=== PATIENT | female | born 1955 | race Caucasian/White ===

== ENCOUNTER 2020-02-06 11:05 | Emergency (ER) | payer MEDICARE ==
--- NOTE | 2020-02-06 11:32 | ED.PDOC ---
History of Present Illness - General Chief Complaint: General Stated Complaint: skin turning yellow Time Seen by Provider: 02/06/20 11:10 - History of Present Illness Initial Comments: 64 F no pmh presents with family member to ED c/o acute onset of painless jaundice that began yesterday. Pt endorses associated progressive generalized fatigue for approximately 1 week now. + h/o similar sx's when she was young as a secondary complication of prior Malaria infection. Pt has no h/o abdominal surgeries and takes no medications daily. She denies alleviating/aggravating factors. She denies associated CP, SOB, abd pain, back pain, cough, n/v/d, f/c, and/or acute changes in bowels/urination. She is otherwise healthy with no other symptoms or complaints. Pt informs she recently took OTC supplement "Leptitox" but has been off of it for approximately 2 months now. Allergies/Adverse Reactions: Allergies NO KNOWN ALLERGY Allergy (Verified 02/06/20 11:24) Home Medications: Ambulatory Orders NK 02/06/20 Review of Systems - Review of Systems Constitutional: States: other - generalized fatigue. Denies: chills, fever EENTM: States: other - scleral icterus Respiratory: Denies: cough, short of breath Cardiology: Denies: chest pain, edema Gastrointestinal/Abdominal: Denies: abdominal pain, constipation, diarrhea, nausea, vomiting Genitourinary: Denies: dysuria Musculoskeletal: Denies: joint pain, muscle pain Skin: States: change in color - jaundice. Denies: rash Neurological: States: other - no dizziness. Denies: headache Hematologic/Lymphatic: Denies: easy bruising Past Medical History (General) - Patient Medical History Surgical History: no surgical history - Vaccination History Hx Influenza Vaccination: No - Social History Hx Alcohol Use: No - Activities of Daily Living Hospice Agency (if applicable):: None - Female History Patient is a Female of Child Bearing Age (10 -59 yrs old): No Family Medical History - Family History Mother Family History: No Known Physical Exam - Physical Exam General Appearance: Alert, Comfortable, No apparent distress Eye Exam: bilateral scleral icterus, bilateral other - PERRLA, pupils symmetric bilaterally Neck: full range of motion, supple, normal inspection Respiratory: lungs clear, normal breath sounds, no respiratory distress, no accessory muscle use Cardiovascular/Chest: normal peripheral pulses, regular rate, rhythm, no edema, no JVD Gastrointestinal/Abdominal: normal bowel sounds, non tender, soft, other - no rebound, no guarding, no peritoneal signs, negative Loving and McBurney Back Exam: no CVA tenderness Extremity: normal inspection, no pedal edema Neurologic: alert, normal mood/affect, oriented x 3 Skin Exam: jaundice Progress - Progress Progress: Pt presents with painless jaundice concerning for pancreaticobiliary pathology. I will perform labs, imaging, provide appropriate pharmacotherapy, and continue to monitor/reassess. Dispo will depend on labs, imaging results and overall course in ED; however, discharge admission is expected. Shorty Brink DO [employer]: 738 PO potassium supplementation given in ED. Rechecked pt with family member at bedside. NAD, VSS, and remains without pain. I have discussed imaging, and radiology results, my clinical impression, and diagnosis. I have also discussed need/plan for transfer for admission and further evaluation by GI with likely cholecystectomy later to follow. Pt and family member voice understanding, agree with plan for transfer, request transfer by private vehicle, all questions answered. Dr. Green auto accepts pt. - Results/Orders Results/Orders: Vital Signs - 24 hr 02/06/20 02/06/20 11:14 11:20 Temperature 98.0 F Pulse Rate [ 98 H 98 H brachial] Respiratory 16 16 Rate Blood Pressure 170/113 [Left Arm] O2 Sat by Pulse 98 Oximetry 02/06/20 11:14 IV Care:Saline Lock per Protoc QSHIFT IV:Start .ONCE 02/06/20 11:30 EKG STAT 02/06/20 12:02 Urine Culture Stat Laboratory Results - last 24 hr 02/06/20 02/06/20 02/06/20 11:25 11:25 11:25 WBC 7.8 RBC 4.33 Hgb 12.7 Hct 37.8 MCV 87.3 MCH 29.3 MCHC 33.6 RDW 15.7 H Plt Count 276 MPV 10.8 Neut % 75.1 Absolute Neuts (auto) Cancelled Absolute Lymphs (auto) 1.21 Absolute Monos (auto) 0.62 Absolute Eos (auto) Cancelled Absolute Basos (auto) Cancelled Neutrophils % Cancelled Lymphocytes % 15.6 Monocytes % 8.0 Eosinophils % Cancelled Basophils % Cancelled Absolute Neutrophils 5.85 Differential Comment Cancelled RBC Morphology Cancelled Sodium 134 L Potassium 2.7 L Chloride 98 L Carbon Dioxide 24 Anion Gap 14.7 BUN 10 Creatinine 0.79 BUN/Creatinine Ratio 12.7 Random Glucose 217 H Serum Osmolality 273.9 L Calcium 8.7 Total Bilirubin 13.1 H* Direct Bilirubin 8.2 H AST 214 H ALT 390 H Alkaline Phosphatase 316 H Serum Total Protein 7.1 Albumin 3.5 Globulin 3.6 H Albumin/Globulin Ratio 1.0 L Lipase 19 L Urine Color Urine Appearance Urine pH Ur Specific Vansant Urine Protein Urine Glucose (UA) Urine Ketones Urine Blood Urine Nitrite Urine Bilirubin Urine Urobilinogen Ur Leukocyte Esterase Urine RBC Urine WBC Ur Epithelial Cells Urine Bacteria Acetaminophen 02/06/20 02/06/20 11:25 11:35 WBC RBC Hgb Hct MCV MCH MCHC RDW Plt Count MPV Neut % Absolute Neuts (auto) Absolute Lymphs (auto) Absolute Monos (auto) Absolute Eos (auto) Absolute Basos (auto) Neutrophils % Lymphocytes % Monocytes % Eosinophils % Basophils % Absolute Neutrophils Differential Comment RBC Morphology Sodium Potassium Chloride Carbon Dioxide Anion Gap BUN Creatinine BUN/Creatinine Ratio Random Glucose Serum Osmolality Calcium Total Bilirubin Direct Bilirubin AST ALT Alkaline Phosphatase Serum Total Protein Albumin Globulin Albumin/Globulin Ratio Lipase Urine Color Yellow Urine Appearance Clear Urine pH 7.0 Ur Specific [place] 1.010 Urine Protein Negative Urine Glucose (UA) Negative Urine Ketones Negative Urine Blood Moderate H Urine Nitrite Negative Urine Bilirubin Small H Urine Urobilinogen 0.2 Ur Leukocyte Esterase Trace H Urine RBC 5-10 H Urine WBC 3-5 H Ur Epithelial Cells 10-20 Urine Bacteria Rare Acetaminophen < 10.0 L EXAM DESCRIPTION: Gall Bladder: ULTRASOUND. CLINICAL HISTORY: Painless Jaundice COMPARISON: None. TECHNIQUE: Transabdominal scanning: Calero-scale and Doppler modes. FINDINGS: Gallbladder: Dilated, 12 x 5 cm, with gravity dependent sludge. No fluid around the gallbladder. No wall thickening. 1.8 mm. tender with transducer pressure. Common bile duct: caliber 14.6 mm markedly dilated. Liver: normal echogenicity; contour liver capsule smooth where seen. No fluid around the liver. Intrahepatic biliary ducts normal caliber. Doppler hepatopedal flow portal vein.. Millimeters at the bismark hepatis. Long axis right lobe 15.7 cm. Pancreas: normal size Normal echogenicity. Duct not seen. Aorta: 1.9 cm proximal normal caliber. Right kidney: long axis is 9.9 cm. Normal cortical echogenicity with midrenal cortical thickness 10 mm.. IMPRESSION: 1. Dilated gallbladder but no wall thickening or fluid. Moderate amount of gravity dependent sludge. Tender with transducer pressure, consider acute versus chronic acalculous cholecystitis. Dilated common bile duct. 2. Fatty liver normal size with physiologic vascularity and normal caliber of the ducts. Otherwise unremarkable. Pancreas is negative. 3. Right kidney with minimal cortical thinning but normal echogenicity. Normal caliber of the abdominal aorta. Electronically signed by: Andrew Garcia MD 02/06/2020 12:30 PM CDT Departure - Departure Clinical Impression: Hypokalemia, Acute on chronic cholecystitis, Transaminitis, Hyperbilirubinemia Time of Disposition: 13:21 Disposition: Transfer to Hospital Condition: Fair Departure Forms: ED Discharge - Pt. Copy, Patient Portal Self Enrollment Diet: other - NPO Home Medications: Ambulatory Orders NK 02/06/20 Transfer to Outside Facility - Transfer Information Decision to Transfer Date: 02/06/20 Decision to Transfer Time: 13:26 Reason for Transfer: specialized care not available Accepting Provider:: Dr. Green Accepting Facility: [facility]
[2020-02-06] MEDS ORDERED: POTASSIUM CHLORIDE ELIXIR 20 MEQ/15 ML UD PO ONE (12:02)
--- NOTE | 2020-02-06 12:31 | US ---
EXAM DESCRIPTION: Gall Bladder: ULTRASOUND. CLINICAL HISTORY: Painless Jaundice COMPARISON: None. TECHNIQUE: Transabdominal scanning: Calero-scale and Doppler modes. FINDINGS: Gallbladder: Dilated, 12 x 5 cm, with gravity dependent sludge. No fluid around the gallbladder. No wall thickening. 1.8 mm. tender with transducer pressure. Common bile duct: caliber 14.6 mm markedly dilated. Liver: normal echogenicity; contour liver capsule smooth where seen. No fluid around the liver. Intrahepatic biliary ducts normal caliber. Doppler hepatopedal flow portal vein.. Millimeters at the bismark hepatis. Long axis right lobe 15.7 cm. Pancreas: normal size Normal echogenicity. Duct not seen. Aorta: 1.9 cm proximal normal caliber. Right kidney: long axis is 9.9 cm. Normal cortical echogenicity with midrenal cortical thickness 10 mm.. IMPRESSION: 1. Dilated gallbladder but no wall thickening or fluid. Moderate amount of gravity dependent sludge. Tender with transducer pressure, consider acute versus chronic acalculous cholecystitis. Dilated common bile duct. 2. Fatty liver normal size with physiologic vascularity and normal caliber of the ducts. Otherwise unremarkable. Pancreas is negative. 3. Right kidney with minimal cortical thinning but normal echogenicity. Normal caliber of the abdominal aorta. Electronically signed by: Andrew Garcia MD 02/06/2020 12:30 PM CDT
[2020-02-06 14:07] VITALS: O2SAT 98
[2020-02-06 14:08] VITALS: BP 137/103
[2020-02-06 14:22] VITALS: TEMP 98.2
== END 2020-02-06 14:21 | disposition short-term general hospital (02) ==
LOC: ER 11:05
DX: K81.0 Acute cholecystitis (principal); E87.6 Hypokalemia; E80.6 Other disorders of bilirubin metabolism; R74.0 Nonspecific elevation of levels of transaminase and lactic acid dehydrogenase [LDH]

== ENCOUNTER → 2020-02-28 | Outpatient (CLI) | payer MEDICARE, OTHER ==
--- NOTE | 2020-02-28 19:15 | US ---
EXAM DESCRIPTION: Venous,Lower Extremity RT (accession [id number]), Venous,Lower Extremity LT (accession [id number]): Ultrasound. CLINICAL HISTORY: CHRONIC LYMPHOCYTIC LEUKEMIA NOT HAVING ACHIEVED REMISSION COMPARISON: None Available. TECHNIQUE: Two -dimensional and doppler sonographic evaluation of the deep venous system of the bilateral lower extremities. FINDINGS: Doppler evaluation shows normal color flow and normal phasicity and augmentation of the bilateral common femoral veins, junctions with the bilateral proximal saphenous veins, femoral veins, popliteal veins, greater saphenous veins, peroneal and posterior tibial veins. These veins showed normal occlusion with transducer pressure. Two-dimensional survey showed no echogenic clot within these veins. IMPRESSION: Duplex ultrasound evaluation of the bilateral lower extremity deep venous systems showing no evidence of thrombosis. Electronically signed by: Andrew Garcia MD 02/28/2020 7:13 PM CDT
--- NOTE | 2020-02-28 19:15 | US ---
EXAM DESCRIPTION: Venous,Lower Extremity RT (accession [id number]), Venous,Lower Extremity LT (accession [id number]): Ultrasound. CLINICAL HISTORY: CHRONIC LYMPHOCYTIC LEUKEMIA NOT HAVING ACHIEVED REMISSION COMPARISON: None Available. TECHNIQUE: Two -dimensional and doppler sonographic evaluation of the deep venous system of the bilateral lower extremities. FINDINGS: Doppler evaluation shows normal color flow and normal phasicity and augmentation of the bilateral common femoral veins, junctions with the bilateral proximal saphenous veins, femoral veins, popliteal veins, greater saphenous veins, peroneal and posterior tibial veins. These veins showed normal occlusion with transducer pressure. Two-dimensional survey showed no echogenic clot within these veins. IMPRESSION: Duplex ultrasound evaluation of the bilateral lower extremity deep venous systems showing no evidence of thrombosis. Electronically signed by: Andrew Garcia MD 02/28/2020 7:13 PM CDT
== END ==
LOC: US 13:45
PROVIDERS: ATTEND Internal Medicine
DX: M79.604 Pain in right leg (principal); M79.605 Pain in left leg; M79.89 Other specified soft tissue disorders

== ENCOUNTER → 2020-04-11 | Outpatient (CLI) | payer MEDICARE, OTHER | LOC: GMAL 14:45 | PROVIDERS: ATTEND Family Medicine | DX: E83.40 Disorders of magnesium metabolism, unspecified (principal); I10 Essential (primary) hypertension ==

== ENCOUNTER → 2020-05-08 | Outpatient (CLI) | payer MEDICARE, OTHER | LOC: HHH 13:20 | PROVIDERS: ATTEND Family Medicine | DX: R30.0 Dysuria (principal) ==

== ENCOUNTER → 2020-05-10 | Outpatient (CLI) | payer MEDICARE, OTHER | LOC: HHH 14:31 | PROVIDERS: ATTEND Internal Medicine | DX: K52.29 Other allergic and dietetic gastroenteritis and colitis (principal) ==

== ENCOUNTER 2020-08-21 12:42 | Emergency (ER) | payer MEDICARE, OTHER ==
[2020-08-21] MEDS ORDERED: SODIUM CHLORIDE 0.9% (FLUSH) 10 ML SYG IV PRN (12:52)
[2020-08-21] MEDS ORDERED: SODIUM CHLORIDE 0.9% 1000ML 1,000 ML IVS PRN (12:52)
--- NOTE | 2020-08-21 14:24 | ED.PDOC ---
History of Present Illness - General Source: patient, RN notes reviewed, Vital Signs reviewed, EMS notes reviewed Exam Limitations: no limitations - History of Present Illness Initial Comments: Patient is a 65-year-old white female who presents with complaints of generalized malaise, fatigue and weakness over the last 3 weeks. Patient diagnosed with pancreatic cancer. She is undergone chemotherapy x4. Her last episode of chemotherapy was approximately 4 weeks ago. Patient has decided not to continue the chemotherapy because it is killing her. Patient's weakness is constant, worsening. Her weakness is worse with exertion. Is not improved with rest. Patient is also noted that her skin is yellow now. Severity: severe Improving Factors: rest Worsening Factors: movement Associated Symptoms: malaise, weakness <Nasir Zabala - Last Filed: 08/22/20 07:12> <Osvaldo Abrams - Last Filed: 08/22/20 13:55> - General Chief Complaint: General Stated Complaint: weakness, low bp Time Seen by Provider: 08/21/20 12:51 - History of Present Illness Allergies/Adverse Reactions: Allergies Penicillins Adverse Reaction (Verified 08/21/20 13:00) Home Medications: Ambulatory Orders NK 02/06/20 Review of Systems - Review of Systems Constitutional: States: see HPI, malaise, weakness. Denies: chills, fever EENTM: States: no symptoms reported. Denies: eye pain, blurred vision, double vision Respiratory: States: no symptoms reported. Denies: cough, short of breath Cardiology: States: no symptoms reported. Denies: chest pain, palpitations, syncope Gastrointestinal/Abdominal: States: no symptoms reported. Denies: abdominal pain, diarrhea, nausea, vomiting Genitourinary: States: no symptoms reported. Denies: dysuria, frequency Musculoskeletal: States: no symptoms reported. Denies: back pain, joint pain, neck pain Skin: States: see HPI, change in color - Hello. Denies: rash Neurological: States: see HPI, weakness. Denies: headache, tingling, tremors Endocrine: States: no symptoms reported. Denies: increased hunger, increased thirst, increased urine, unexplained weight gain, unexplained weight loss Hematologic/Lymphatic: States: no symptoms reported. Denies: blood clots, easy bleeding All other Systems: No Change from Baseline <Nasir Zabala - Last Filed: 08/22/20 07:12> Past Medical History (General) - Patient Medical History Hx Stroke: Yes Hx of COPD: Yes Hx Cardiac Disorders: Yes Hx Congestive Heart Failure: No Hx Hypertension: Yes Hx Diabetes: No Hx Renal Disease: Yes - Vaccination History Hx Tetanus, Diphtheria Vaccination: No Hx Influenza Vaccination: No Hx Pneumococcal Vaccination: No Immunizations Up to Date: No - Social History Hx Tobacco Use: No Hx Alcohol Use: No Hx Substance Use: No Hx Substance Use Treatment: No Hx Depression: No - Female History Patient is a Female of Child Bearing Age (10 -59 yrs old): No <Nasir Zabala - Last Filed: 08/22/20 07:12> Family Medical History - Family History Mother Family History: No Known <Nasir Zabala - Last Filed: 08/22/20 07:12> Physical Exam - Physical Exam General Appearance: Alert, Anxious, Frail, Lethargic, Obvious distress, Ill Appearing, Well Developed, Well Nourished Eye Exam: bilateral scleral icterus Ears, Nose, Throat: hearing grossly normal, normal pharynx - Yellow conjunctiva and sclera except dry mucous membranes Neck: non-tender, full range of motion, supple Respiratory: chest non-tender, lungs clear, normal breath sounds, no respiratory distress, no accessory muscle use Cardiovascular/Chest: normal peripheral pulses, no edema, no gallop, no JVD, tachycardia Peripheral Pulses: radial,right: 2+, radial,left: 2+ Gastrointestinal/Abdominal: normal bowel sounds, non tender, soft Back Exam: normal inspection, no CVA tenderness, no vertebral tenderness Extremity: normal range of motion, non-tender, normal capillary refill, pedal edema - 2+ lower extremity edema bilaterally and equal. Neurologic: celery stripper II-XII nml as tested, no motor/sensory deficits, alert, normal mood/affect, oriented x 3 Skin Exam: jaundice Lymphatic: no adenopathy <Nasir Zabala - Last Filed: 08/22/20 07:12> Progress - Progress Progress: Differential diagnosis: Dehydration, UTI, bowel obstruction, sepsis, electrolyte imbalance among others. 08/21/20 16:48 Patient's heart rate has come down markedly since she has had a liter of IV fluid. She is still mildly tachycardic and therefore I will give her a 500 cc bolus. Labs abnormalities show mild hypokalemia. I have given her 40 p.o. of potassium and will discharge her with a prescription for potassium. I will reassess her prior to discharge. 08/21/20 19:00 Upon reassessment prior to discharge patient's blood pressure dropped into the 80s. Patient appeared more confused. Lactic acid and ammonia were obtained and they were markedly elevated. Patient responded to another liter bolus of fluids. In discussion with the patient and family I recommended admission for further evaluation and treatment. Blood cultures were drawn and IV antibiotics were started. 08/21/20 21:55 Patient Remains stable at this time. Mild tachycardia with systolic blood pressures in the 90s. Antibiotics have infused. We are still looking for a hospital that has capacity to accept the patient for transfer. In the interim, I have ordered chest x-ray and CT of the abdomen and pelvis. I have discussed with the patient and her daughter and they voiced understanding and agreement with the plan of care. 08/22/20 02:37 Have contacted greater than 20 hospitals to arrange for transfer. All hospitals do not have capacity or capability. We will continue to seek transfer of medical care for this patient. I do not have the capability of caring for her medical needs at this facility. Patient's systolic blood pressure has been in the upper 90's. It did drop once into the 80s and responded to a 500 cc bolus of normal saline. Patient is being repleted with normal saline with 40 mEq of KCl at 200 mL an hour. 08/22/20 03:24 Patient's blood pressure is stabilized and systolics of high 90s. Potassium replacement fluids continue to infuse. We will repeat patient's labs at 6 AM. 08/22/20 06:45 Patient's blood pressures have continued to trend upward with IV fluids. Systolic blood pressure now in the 110s. Repeat lactic acid 3.5. Plan handoff to the oncoming physician at 0700 hrs. We have been asked by [facility] to call at shift change at 0700 hrs. as they are discharging patients and believe they will have a capacity to care for this patient at that time. Nasir Zabala M.D. #[id number] - Results/Orders Results/Orders: 08/21/20 12:52 Sodium Chloride 0.9% (Flush) [Saline Flush Syringe] 10 ml IV PRN PRN Sodium Chloride 0.9% 1000ML [Ns 1000 ml] 1,000 ml IVS .QD 08/21/20 13:00 EKG STAT 08/21/20 16:35 Sodium Chloride 0.9% 500Ml [NS 500ml] 500 ml IVS ONCE Laboratory Results - last 24 hr 08/21/20 08/21/20 08/21/20 13:05 13:05 14:45 WBC 7.7 RBC 3.33 L Hgb 11.5 L Hct 34.6 L MCV 104.0 H MCH 34.6 H MCHC 33.2 RDW 16.1 H Plt Count 177 MPV 8.8 Absolute Neuts (auto) 6.30 Absolute Lymphs (auto) 1.00 Absolute Monos (auto) 0.40 Absolute Eos (auto) 0.00 Absolute Basos (auto) 0.00 Neutrophils % 81.5 H Lymphocytes % 12.9 L Monocytes % 4.7 Eosinophils % 0.6 L Basophils % 0.3 Sodium 136 Potassium 2.9 L Chloride 103 Carbon Dioxide 19 L Anion Gap 16.9 BUN 14 Creatinine 1.63 H BUN/Creatinine Ratio 8.6 L Random Glucose 76 Serum Osmolality 271.2 L Calcium 8.0 L Total Bilirubin 7.4 H* Direct Bilirubin 4.3 H Indirect Bilirubin 3.1 H AST 80 H ALT 52 Alkaline Phosphatase 97 Serum Total Protein 5.5 L Albumin 1.5 L Lipase 23 Urine Color Lisa H Urine Appearance Sl cloudy Urine pH 5.5 Ur Specific [place] 1.020 Urine Protein 30 Urine Glucose (UA) Negative Urine Ketones Trace Urine Blood Trace-intact H Urine Nitrite Negative Urine Bilirubin Large Urine Urobilinogen 2.0 H Ur Leukocyte Esterase Negative Urine RBC 1-3 Urine WBC 5-10 H Ur Epithelial Cells 5-10 Calcium Oxalate Crystal 1+ Amorphous Sediment 1+ Urine Bacteria Rare Hyaline Casts 0-1 Urine Mucus Large Repeat lactic acid at 0500 hrs. is now 3.5. EXAM: XR Chest, 1 View CLINICAL HISTORY: tachycardia TECHNIQUE: Frontal view of the chest. COMPARISON: No relevant prior studies available. FINDINGS: Lungs: Shallow inspiration noted. There is consolidation in the retrocardiac left base and bilateral basilar linear atelectasis. Pleural space: No pneumotho rax. No pleural effusion. Heart: Prominent cardiac shadow noted. Mediastinum: No abnormality noted. Bones/joints: No osseous destruction or sclerosis noted. Vasculature: There is mild vascular congestion. Tubes, lines and devices: Left subclavian central venous port terminates at the cavoatrial junction. IMPRESSION: 1. Left basilar airspace consolidation could reflect pneumonia or segmental atelectasis. Also consider mucous plugging. 2. Vascular congestion present. Electronically signed by: Sabina Meza MD 08/21/2020 9:50 PM EXAM DESCRIPTION: Abdomen/Pelvis w/Contrast 08/21/2020 10:12 PM ENVIRONMENTAL HEALTH NURSE CLINICAL HISTORY: 65 years, Female, tachycardia COMPARISON: None. PROCEDURE: Contrast- enhanced images of the abdomen and pelvis were performed utilizing 2 mm slice thickness at 2 mm interval reconstruction from the lung bases to the ischial tuberosities after the administration of 100 IV contrast. No dosing amount was provided for interpretation. In addition multiplanar reformats in the coronal and sagittal plane were obtained and reviewed. An individualized dose optimization technique, Automated Exposure Control, was utilized for the performed procedure. FINDINGS: The lung bases demonstrate presence of a small bilateral pleural effusions with compressive atelectatic changes and/or infiltrates. The liver demonstrate to be enlarged with marked decreased attenuation corresponding to significant fatty infiltration. There is small amount trace of ascites. Clips within the gallbladder fossa corresponding to previous cholecystectomy. The, pancreas is atrophic. The the spleen and adrenal glands demonstrate to be unremarkable, no focal lesions are noted. The kidneys demonstrate normal uptake of contrast media. No hydronephrosis and/or stones were identified. There is a status post the gastric bypass Julien-en-Y surgery. There is no evidence for significant bowel dilatation/or free air. There is questionable edema of the large bowel and/or related to small amount of ascites. The appendix was not visualized. The urinary bladder demonstrate to be unremarkable. The uterus demonstrate to be unremarkable. The aorta demonstrate to be normal. There is no retroperitoneal lymphadenopathy. The bone windows demonstrate diffuse bony osteopenia. No significant skeletal lesions are seen. IMPRESSION: HEPATOMEGALY WITH MARKEDLY FATTY INFILTRATION OF THE LIVER. STATUS POST CHOLECYSTECTOMY. STATUS POST GASTRIC BYPASS JULIEN-EN-Y SURGERY. SMALL AMOUNT OF ASCITES. ABNORMAL MUCOSAL THICKENING/EDEMA OF THE LARGE BOWEL MOST LIKELY RELATED TO ASCITES, LESS LIKELY INFECTION AND/OR INFLAMMATION COULD BE OF CONSIDERATION. SMALL BILATERAL PLEURAL EFFUSIONS WITH COMPRESSIVE ATELECTATIC CHANGES VERSUS LESS LIKELY INFILTRATES. Electronically signed by: Sandeep Norman MD 08/21/2020 10:18 PM ENVIRONMENTAL HEALTH NURSE EKG performed 21 August 2020 at 1313 hrs.: Sinus tachycardia at 118 bpm, normal axis deviation, cannot rule out anterior infarct, age indeterminate, abnormal EKG. Vital Signs 08/21/20 08/21/20 08/21/20 12:54 13:02 13:16 Temperature 98 F Pulse Rate [ 122 H 121 H MONITOR] Respiratory 18 Rate Blood Pressure 90/63 [RA] O2 Sat by Pulse 87 L 92 L Oximetry 08/21/20 08/21/20 08/21/20 13:48 14:08 15:29 Temperature Pulse Rate [ 119 H 110 H 109 H MONITOR] Respiratory 20 18 22 Rate Blood Pressure 106/67 113/67 100/62 [RA] O2 Sat by Pulse 98 100 99 Oximetry 08/21/20 08/21/20 15:53 16:03 Temperature Pulse Rate [ 104 H 109 H MONITOR] Respiratory 18 18 Rate Blood Pressure 90/53 106/59 [RA] O2 Sat by Pulse 98 99 Oximetry Vital Signs 08/21/20 08/22/20 08/22/20 23:00 00:00 01:00 Pulse Rate [ 105 H 110 H 111 H MONITOR] Respiratory 16 16 18 Rate Blood Pressure 93/44 93/44 93/54 [RA] O2 Sat by Pulse 98 100 99 Oximetry 08/22/20 08/22/20 08/22/20 01:37 01:46 02:00 Pulse Rate [ 105 H 102 H 106 H MONITOR] Respiratory 18 18 14 Rate Blood Pressure 80/47 87/48 87/43 [RA] O2 Sat by Pulse 99 100 99 Oximetry 08/22/20 08/22/20 08/22/20 03:00 04:00 04:55 Pulse Rate [ 102 H 108 H 104 H MONITOR] Respiratory 18 18 18 Rate Blood Pressure 88/47 92/50 104/51 [RA] O2 Sat by Pulse 100 99 100 Oximetry <Nasir Zabala - Last Filed: 08/22/20 07:12> - Progress Progress: 08/22/20 07:41 Assuming care of patient, report received, chart reviewed, glucose this morning 50, unknown what meds if any patient is on for DM, patient unable to give history due to MS, will be contacting daughter to determine what chronic meds patient may be on. Will be contacting [facility] and [place] this morning again to inquire about transfer. Daughter informs us that patient has been taking no prescription medications of any kind. She has not had anything PO in about 36 hours. 08/22/20 13:32 [place] [facility] [place]IENT NOW ON PRESSOR SUPPORT, BLOOD PRESSURE REMAINS 90-105, HR 110'S. AROUSABLE BUT LETHARGIC, EXTREMITIES ARE WARM. DISCUSSED WITH DAUGHTER PATIENT'S PRIOR REACTION TO PCN, STATES PRURITIS AND POSSIBLE RASH, NO OTHER REACTION, NO ANAPHYLAXIS TYPE REACTION. WILL GIVE DOSE OF ERTAPENEUM. [facility]OUND TRANSPORT IS ONLY AVAILABLE TRANSPORT DUE TO WEATHER, LOW CEILINGS / IFR CONDITIONS. <Osvaldo Abrams - Last Filed: 08/22/20 13:55> Departure - Departure Time of Disposition: 07:11 <Nasir Zaabla - Last Filed: 08/22/20 07:12> <Osvaldo Abrams - Last Filed: 08/22/20 13:55> - Departure Clinical Impression: Obstructive jaundice due to malignant neoplasm, Hypokalemia, Hyperbilirubinemia Sepsis Qualifiers: Sepsis type: sepsis due to unspecified organism Sepsis acute organ dysfunction status: unspecified Qualified Code(s): A41.9 - Sepsis, unspecified organism Condition: Poor Departure Forms: ED Discharge - Pt. Copy, Patient Portal Self Enrollment Referrals: Sandeep Lockhart III, MD [Primary Care Provider] - 1-2 Weeks Home Medications: Ambulatory Orders NK 02/06/20
[2020-08-21] MEDS ORDERED: POTASSIUM CHLORIDE 20 MEQ TAB PO ONE (16:31)
[2020-08-21] MEDS ORDERED: SODIUM CHLORIDE 0.9% 500ML 500 ML IVS ONE (16:35)
[2020-08-21] MEDS ORDERED: POTASSIUM CHLORIDE ELIXIR 20 MEQ/15 ML UD PO ONE (16:52)
[2020-08-21] MEDS ORDERED: levoFLOXacin 750MG IV 750 MG in PREMIX BAG 1 BAG IVPB ONE (18:12)
[2020-08-21] MEDS ORDERED: SODIUM CHLORIDE 0.9% 1000ML 1,000 ML IVS ONE (19:47)
--- NOTE | 2020-08-21 21:52 | RAD ---
EXAM: XR Chest, 1 View CLINICAL HISTORY: tachycardia TECHNIQUE: Frontal view of the chest. COMPARISON: No relevant prior studies available. FINDINGS: Lungs: Shallow inspiration noted. There is consolidation in the retrocardiac left base and bilateral basilar linear atelectasis. Pleural space: No pneumothorax. No pleural effusion. Heart: Prominent cardiac shadow noted. Mediastinum: No abnormality noted. Bones/joints: No osseous destruction or sclerosis noted. Vasculature: There is mild vascular congestion. Tubes, lines and devices: Left subclavian central venous port terminates at the cavoatrial junction. IMPRESSION: 1. Left basilar airspace consolidation could reflect pneumonia or segmental atelectasis. Also consider mucous plugging. 2. Vascular congestion present. Electronically signed by: Sabina Meza MD 08/21/2020 9:50 PM [facility]
[2020-08-21] MEDS ORDERED: fentaNYL CITRATE INJ 50 MCG/ML 2 ML AMP IV ONE (22:07)
--- NOTE | 2020-08-21 22:20 | CT ---
EXAM DESCRIPTION: Abdomen/Pelvis w/Contrast 08/21/2020 10:12 PM CONSULTING DATABASE ADMINISTRATOR CLINICAL HISTORY: 65 years, Female, tachycardia COMPARISON: None. PROCEDURE: Contrast-enhanced images of the abdomen and pelvis were performed utilizing 2 mm slice thickness at 2 mm interval reconstruction from the lung bases to the ischial tuberosities after the administration of 100 IV contrast. No dosing amount was provided for interpretation. In addition multiplanar reformats in the coronal and sagittal plane were obtained and reviewed. An individualized dose optimization technique, Automated Exposure Control, was utilized for the performed procedure. FINDINGS: The lung bases demonstrate presence of a small bilateral pleural effusions with compressive atelectatic changes and/or infiltrates. The liver demonstrate to be enlarged with marked decreased attenuation corresponding to significant fatty infiltration. There is small amount trace of ascites. Clips within the gallbladder fossa corresponding to previous cholecystectomy. The, pancreas is atrophic. The the spleen and adrenal glands demonstrate to be unremarkable, no focal lesions are noted. The kidneys demonstrate normal uptake of contrast media. No hydronephrosis and/or stones were identified. There is a status post the gastric bypass Haja-en-Y surgery. There is no evidence for significant bowel dilatation/or free air. There is questionable edema of the large bowel and/or related to small amount of ascites. The appendix was not visualized. The urinary bladder demonstrate to be unremarkable. The uterus demonstrate to be unremarkable. The aorta demonstrate to be normal. There is no retroperitoneal lymphadenopathy. The bone windows demonstrate diffuse bony osteopenia. No significant skeletal lesions are seen. IMPRESSION: HEPATOMEGALY WITH MARKEDLY FATTY INFILTRATION OF THE LIVER. STATUS POST CHOLECYSTECTOMY. STATUS POST GASTRIC BYPASS HAJA-EN-Y SURGERY. SMALL AMOUNT OF ASCITES. ABNORMAL MUCOSAL THICKENING/EDEMA OF THE LARGE BOWEL MOST LIKELY RELATED TO ASCITES, LESS LIKELY INFECTION AND/OR INFLAMMATION COULD BE OF CONSIDERATION. SMALL BILATERAL PLEURAL EFFUSIONS WITH COMPRESSIVE ATELECTATIC CHANGES VERSUS LESS LIKELY INFILTRATES. Electronically signed by: Sandeep Norman MD 08/21/2020 10:18 PM CONSULTING DATABASE ADMINISTRATOR
[2020-08-22] MEDS ORDERED: KCL 40MEQ/NS 1,000 ML IVS PRN (00:35)
[2020-08-22] MEDS ORDERED: SODIUM CHLORIDE 0.9% 500ML 500 ML ONE (01:32)
[2020-08-22] MEDS ORDERED: fentaNYL CITRATE INJ 50 MCG/ML 2 ML AMP IV ONE (05:56)
[2020-08-22] MEDS ORDERED: DEX 5% W/NACL 0.9% 1000ML 1,000 ML IVS PRN (07:38)
[2020-08-22] MEDS ORDERED: HYDROmorphone HCL INJ 2 MG/ML VIAL IV ONE (10:45)
[2020-08-22] MEDS ORDERED: ONDANSETRON INJ 4 MG/2 ML VIAL IV ONE (10:46)
[2020-08-22] MEDS ORDERED: DEXTROSE 5% 250ML 250 ML ONE (11:33)
[2020-08-22] MEDS ORDERED: NOREPINEPHRINE BITARTRATE 4 MG/4 ML VIAL IVPB ONE (11:33)
[2020-08-22] MEDS ORDERED: NOREPINEPHRINE BITARTRATE 4 MG in DEXTROSE 5% 250ML 250 ML IVPB ONE (11:46)
--- NOTE | 2020-08-22 11:57 | CONS ---
DATE OF CONSULTATION: 08/22/20 DATE OF ADMISSION: 08/21/20 CHIEF COMPLAINT: Jaundice. HISTORY OF PRESENT ILLNESS: Ms. Willson is a 65-year-old woman with a history of pancreatic cancer status post Whipple procedure last summer on chemotherapy who presents with weakness and jaundice with abdominal pain. She has been observed in the Emergency Room. Her bilirubin is 7.4. Transaminases, alkaline phosphatase are mildly elevated. White count is normal. She is afebrile, but she has been hypotensive to 70s/40s. She this morning has developed delirium as well. She has had two blood culture bottles return with gram negative rods. On CT scan, she had post surgical changes in the stomach, severe steatosis of the liver, no appreciated biliary dilation. She had bibasilar atelectasis with trace ascites. Urinalysis was not consistent with urinary tract infection. PAST MEDICAL HISTORY: 1. Stroke. 2. Chronic obstructive pulmonary disease. 3. Cardiac disease. 4. Pancreatic cancer. PAST SURGICAL HISTORY: 1. Whipple procedure. FAMILY HISTORY: No relevant GI disease. SOCIAL HISTORY: No tobacco or alcohol. REVIEW OF SYSTEMS: Unable to obtain due to the patient's altered mental status. PHYSICAL EXAMINATION: VITAL SIGNS: Afebrile. Blood pressure 70/48. Heart rate 115. Oxygen saturation 95%. GENERAL: The patient is confused and lethargic. She is unable to participate in exam. HEENT: Jaundice. HEART: Tachycardic, regular rhythm. ABDOMEN: Diffusely tender, predominantly in the epigastrium. LABORATORY: As above. ASSESSMENT: This is a 65-year-old woman with a history of pancreatic cancer status post Whipple procedure presenting with worsened jaundice, bacteremia, abdominal pain and delirium. The patient has severe sepsis of uncertain etiology. There is no biliary dilation seen on CT scan. With gram negative rods in the blood, that limits the potential sources. RECOMMENDATION: She is currently being covered with Levaquin. I have recommended expanding that to Zosyn. I talked to Dr. Griffith at [facility] who is her hepatobiliary surgeon and he has agreed to take the patient in transfer pending bed availability. #[id number] [facility]
[2020-08-22] MEDS ORDERED: NOREPINEPHRINE BITARTRATE 4 MG in DEXTROSE 5% 250ML 250 ML IVPB SCH (12:00)
[2020-08-22] MEDS ORDERED: ERTAPENEM 1 GM in SODIUM CHL 0.9% 50ML MIN-BAG+ 50 ML IVPB ONE (12:01)
[2020-08-22 14:14] VITALS: TEMP 98.9; O2SAT 93
[2020-08-22 15:01] VITALS: BP 88/53
== END 2020-08-22 14:55 | disposition home or self-care (01) ==
LOC: ER 12:42
DX: A41.9 Sepsis, unspecified organism (principal); C25.9 Malignant neoplasm of pancreas, unspecified; K83.1 Obstruction of bile duct; R00.0 Tachycardia, unspecified; E87.6 Hypokalemia; E80.6 Other disorders of bilirubin metabolism; E11.22 Type 2 diabetes mellitus with diabetic chronic kidney disease; G35 Multiple sclerosis; K76.0 Fatty (change of) liver, not elsewhere classified; I12.9 Hypertensive chronic kidney disease with stage 1 through stage 4 chronic kidney disease, or unspecified chronic kidney disease; N18.9 Chronic kidney disease, unspecified; J44.9 Chronic obstructive pulmonary disease, unspecified; I51.9 Heart disease, unspecified; Z92.21 Personal history of antineoplastic chemotherapy; Z98.84 Bariatric surgery status; Z86.73 Personal history of transient ischemic attack (TIA), and cerebral infarction without residual deficits; Z79.899 Other long term (current) drug therapy; Z90.49 Acquired absence of other specified parts of digestive tract; Z88.0 Allergy status to penicillin
CPT/HCPCS: 36415; 71045; 74177; 80048; 80053; 80076; 81001; 82140; 82948; 83605; 83690; 83880; 85025; 87040; 87086; 87635; 93005; J1170; J1335; J1956; J2405; J3010; J3480; J7030; J7040; J7050; J7060; J7799